=== PATIENT | male | born 1945 | race Caucasian/White ===

== ENCOUNTER 2018-12-01 05:55 | Day surgery (SDC) | payer MEDICARE ==
[~2018-12-01] VITALS: Ht 177.8 cm; Wt 75.7 kg
[2018-12-01] MEDS ORDERED: LIDOCAINE 1% PF 30 ML VIAL. ONE ×2 (05:57→06:09)
[2018-12-01] MEDS ORDERED: BUPIVACAINE MPF 0.5% 30 ML VIAL. ONE (05:57)
[2018-12-01] MEDS ORDERED: AMLO10TA8 PO (06:13)
[2018-12-01] MEDS ORDERED: ASPI81TA50 PO (06:14)
[2018-12-01] MEDS ORDERED: ATORVASTATIN CA80 MG PO (06:15)
[2018-12-01] MEDS ORDERED: CARV12.511 PO (06:15)
[2018-12-01] MEDS ORDERED: IRBE300T3 PO (06:16)
[2018-12-01] MEDS ORDERED: TERA10CA3 PO (06:17)
[2018-12-01] MEDS ORDERED: SPIR25TA5 PO (06:18)
[2018-12-01] MEDS ORDERED: PANT20TA2 PO (06:19)
[2018-12-01] MEDS ORDERED: CYAN10005 PO (06:26)
[2018-12-01] MEDS ORDERED: IV RINGERS,LACTATED 1000ML 1,000 ML IV SCH (07:00)
[2018-12-01] MEDS ORDERED: ONDANSETRON PF 4 MG/2 ML VIAL. IV PRN (07:00)
[2018-12-01] MEDS ORDERED: MORPHINE SULFATE 2 MG/ML VIAL. IV PRN (07:00)
[2018-12-01] MEDS ORDERED: HYDROmorphone 2 MG/ML VIAL IV PRN (07:00)
[2018-12-01] MEDS ORDERED: PROCHLORPERAZINE 10 MG/2 ML VIAL. IV PRN (07:00)
[2018-12-01] MEDS ORDERED: fentaNYL PF VIAL 100 MCG/2 ML VIAL IV PRN ×2 (07:00)
[2018-12-01] MEDS ORDERED: PROPOFOL 20 ML IV ONE (07:10)
--- NOTE | 2018-12-01 07:19 | DISCH ---
DISCHARGE INSTRUCTIONS Condition on Discharge Condition on Discharge: Stable Activity After Discharge Activity Instructions for Disc: Activity as tolerated Other activity instructions: wiggle fingers Bathing Instructions: Shower-keep dressing dry Lifting Instructions after Dis: No heavy lifting, No pulling or pushing Diet after Discharge Diet after Discharge: Regular Wound Incision Care Wound/Incision Care: Ice to area for comfort, Keep wound elevated, Change dressing Other wound/incision instructi: ok to change dressing in [address] after DC Call your doctor for: Concerns you may have Follow-Up Follow up with: Aria in 2 wks SUGEY SCHULTZ II, MD Dec 01, 2018 07:19
[2018-12-01] MEDS ORDERED: ONDA4TAB7 PO (08:33)
[2018-12-01] MEDS ORDERED: HYDR-3164 PO (08:34)
[2018-12-01] MEDS ORDERED: DOCU-109 PO (08:35)
[2018-12-01] MEDS ORDERED: HYDROcodone/APAP 5/325MG 1 TAB TABLET ONE (08:44)
[2018-12-01] MEDS ORDERED: HYDROcodone/APAP 5/325MG 1 TAB TABLET PO ONE (08:45)
--- NOTE | 2018-12-01 08:50 | PDOC4 ---
Operative Note Operative Note Date of procedure: 12/01/2018 Surgeon: Dariusz Schultz Preoperative diagnosis: Right carpal tunnel syndrome Postoperative diagnosis: Same Procedure performed: Open right carpal tunnel release Anesthesia: Ruchi block with sedation Findings: Normal-appearing median nerve Blood loss: 2 mL Tourniquet time: 25 minutes Complications: None Reason for procedure: Patient is very pleasant individual has had long-standing carpal tunnel symptoms that have failed conservative therapies. EMG demonstrated the same. Because conservative therapies had failed and the carpal tunnel syndrome was interfering with activities of daily living, we discussed the risks, benefits, alternatives to the above procedure and they wished to proceed. Description of procedure: Patient was greeted in the preoperative area where the patient underwent successful induction of a [place] block with sedation. The right upper extremity was then prepped and draped in her usual sterile fashion we conducted our standard preoperative timeout. After this, I made a skin incision from the distal wrist crease into the palm over the transverse carpal ligament and incised skin with a scalpel, dissected subcutaneous tissue until I encountered the palmar fascia with a mosquito clamp. Hemostasis was achieved with bipolar cautery. The palmar fascia was incised in line with the skin incision and myself retaining retractor was then positioned. I then identified the transverse carpal ligament and transected this with the scalpel. I then placed a Ragnell retractor at the distal portion of the incision, spread above and below small remaining portion of the transverse carpal ligament with a tenotomy and then released the remainder of the ligament distally with the tenotomy scissors. I then repeated this maneuver at the proximal portion of the incision and an ulnar directed fashion to release E distal and antebrachial fascia. I then palpated along the median nerve with the tip of the tenotomies to help ensure that accomplished a complete release. The wound was then thoroughly irrigated out with sterile fluid. Skin was then closed with simple interrupted 2-0 nylon. A soft bulky sterile dressing was applied. All counts correct 2 prior to wound closure. Surgery was well tolerated by the patient. The tourniquet was let down and the patient was transferred gently supine to the recovery room cart and taken to PACU in a stable and extubated condition. Postoperative plan is to encourage elevation of the hand and active range of motion at fingers and wrist. I will see the patient back in 2 weeks, sooner should a problem arise. DARIUSZ SCHULTZ II, MD Dec 01, 2018 08:50
[2018-12-01 09:26] VITALS: BP 143/82
== END 2018-12-01 09:26 | disposition home or self-care (01) ==
LOC: SURG 05:55
PROVIDERS: ATTEND Orthopaedic Surgery Sports Medicine
DX: G56.01 Carpal tunnel syndrome, right upper limb (principal); I10 Essential (primary) hypertension; I25.10 Atherosclerotic heart disease of native coronary artery without angina pectoris; E78.5 Hyperlipidemia, unspecified; K21.9 Gastro-esophageal reflux disease without esophagitis; Z85.828 Personal history of other malignant neoplasm of skin; Z90.49 Acquired absence of other specified parts of digestive tract; Z95.0 Presence of cardiac pacemaker; Z98.42 Cataract extraction status, left eye; Z98.41 Cataract extraction status, right eye; Z96.1 Presence of intraocular lens; Z98.890 Other specified postprocedural states; Z83.3 Family history of diabetes mellitus; Z82.49 Family history of ischemic heart disease and other diseases of the circulatory system; Z82.3 Family history of stroke; Z87.891 Personal history of nicotine dependence; Z95.1 Presence of aortocoronary bypass graft; Z79.899 Other long term (current) drug therapy; Z79.82 Long term (current) use of aspirin; Z88.8 Allergy status to other drugs, medicaments and biological substances
CPT/HCPCS: 64721; J0690; J2704; J3490

== ENCOUNTER 2019-09-14 12:08 | Inpatient (IN) | payer MEDICARE ==
[~2019-09-14] VITALS: Ht 180.3 cm; Wt 68.7 kg
[~2019-09-14 12:08] MED LIST: AMLO10TA8 PO; ASPI81TA50 PO; ATORVASTATIN CA80 MG PO; CARV12.511 PO; CYAN-25 PO; DOCU-109 PO; HYDR-3164 PO; IRBE300T3 PO; ONDA4TAB7 PO; PANT20TA2 PO; SPIR25TA5 PO; TERA10CA3 PO
[2019-09-14 12:26] LABS: BASO # 0.1 x10^3/uL (0.0-0.2); BASO % 2 % (0-3); EOS # 0.3 x10^3/uL (0.0-0.7); EOS % 4 % (0-3); HEMATOCRIT 47.3 % (39.0-53.0); HEMOGLOBIN 16.1 g/dL (13.0-17.5); LYMPH # 1.6 x10^3/uL (1.0-4.8); LYMPH % 25 % (24-48); MEAN CORPUSCULAR HEMOGLOBIN 32 pg (25-35); MEAN CORPUSCULAR HGB CONC 34 g/dL (31-37); MEAN CORPUSCULAR VOLUME 94 fL (79-100); MONO # 0.8 x10^3/uL (0.0-1.1); MONO % 12 % (0-9); NEUT # 3.8 x10^3/uL (1.8-7.7); NEUT % 58 % (31-73); PLATELET COUNT 161 x10^3/uL (140-400); RED BLOOD COUNT 5.01 x10^6/uL (4.30-5.70); RED CELL DISTRIBUTION WIDTH 14.1 % (11.5-14.5); WHITE BLOOD COUNT 6.5 x10^3/uL (4.0-11.0)
--- NOTE | 2019-09-14 12:28 | RAD ---
PORTABLE CHEST 1V History: Chest pain, hypertension Comparison: None. Findings: Single view of the chest is submitted. There has been median sternotomy. There is dual lead left electronic cardiac device. Pericardial cardiac silhouette is enlarged. There is medial right lung base airspace opacity, also possible mild atelectasis left lung base. No pneumothorax is identified. Central pulmonary vessels are somewhat prominent. Impression: 1. Pericardial cardiac silhouette is enlarged. There is medial right lung base opacity, possible infiltrate and also suspected mild left base atelectasis. Electronically signed by: Marquez Peters MD (09/14/2019 12:25 PM) [facility]
[2019-09-14] MEDS ORDERED: hydrALAZINE 20 MG/ML VIAL. IVP ONE (12:30)
[2019-09-14 12:37] LABS: CALCIUM 8.4 mg/dL (8.5-10.1); CREATININE 1.2 mg/dL (0.7-1.3); POTASSIUM 4.1 mmol/L (3.5-5.1)
[2019-09-14 12:41] LABS: ALBUMIN 3.4 g/dL (3.4-5.0); ALBUMIN/GLOBULIN RATIO 0.9 (1.0-1.7); MAGNESIUM 1.8 mg/dL (1.8-2.4); TOTAL BILIRUBIN 1.4 mg/dL (0.2-1.0); TOTAL PROTEIN 7.2 g/dL (6.4-8.2)
--- NOTE | 2019-09-14 12:56 | PHYS DOC ---
Past Medical History Past Medical History: CAD, High Cholesterol, Hypertension Past Surgical History: Coronary Bypass Surgery, Pacemaker, Other Additional Past Surgical Histo: right ankle; cardiac stents Alcohol Use: Occasionally Drug Use: None Adult General Chief Complaint Chief Complaint: CHEST PAIN HPI HPI Patient is a 74 year old with history of hypertension, dyslipidemia, coronary artery disease status post CABG and pacemaker placement who presents via EMS with complaint of shortness of breath and chest pain. Patient complaining of orthopnea and cough for one week. Patient complaining of bilateral lower extremity edema for the last few days. Patient states he went to see his primary care physician today regarding shortness of breath and had 1 episodes of substernal chest pain for a few minutes as a mild and aching pain that resolved spontaneously. Patient had EKG by primary care physician office was concern for possible STEMI and sent patient by EMS to ER. Patient however did not show STEMI. Review of Systems Review of Systems Constitutional: Denies fever or chills [] Eyes: Denies change in visual acuity, redness, or eye pain [] HENT: Denies nasal congestion or sore throat [] Respiratory: Reports cough and shortness of Cardiovascular: No additional information not addressed in HPI [] GI: Denies abdominal pain, nausea, vomiting, bloody stools or diarrhea [] : Denies dysuria or hematuria [] Musculoskeletal: Denies back pain or joint pain [] Integument: Denies rash or skin lesions [] Neurologic: Denies headache, focal weakness or sensory changes [] Endocrine: Denies polyuria or polydipsia [] All other systems were reviewed and found to be within normal limits, except as documented in this note. Current Medications Current Medications Current Medications Medications (Trade) Dose Ordered Sig/Betsy Start Time Stop Time Status Last Admin Dose Admin Hydralazine HCl (Apresoline Inj) 10 mg 1X ONCE 09/14/19 12:30 09/14/19 12:31 DC 09/14/19 12:30 10 MG Allergies Allergies Allergies Coded Allergies Type Severity Reaction Last Updated Verified No Known Drug Allergies 12/01/18 No Physical Exam Physical Exam Constitutional: Well developed, well nourished, no acute distress, non-toxic appearance. [] HENT: Normocephalic, atraumatic, bilateral external ears normal, oropharynx moist, no oral exudates, nose normal. [] Eyes: PERRLA, EOMI, conjunctiva normal, no discharge. [] Neck: Normal range of motion, no tenderness, supple, no stridor. [] Cardiovascular:Heart rate regular rhythm, no murmur [] Lungs & Thorax: Bilateral breath sounds clear to auscultation [] Abdomen: Bowel sounds normal, soft, no tenderness, no masses, no pulsatile masses. [] Skin: Warm, dry, no erythema, no rash. [] Back: No tenderness, no CVA tenderness. [] Extremities: No tenderness, no cyanosis, no clubbing, ROM intact, no edema. [] Neurologic: Alert and oriented X 3, normal motor function, normal sensory functi on, no focal deficits noted. [] Psychologic: Affect normal, judgement normal, mood normal. [] Current Patient Data Vital Signs Vital Signs Date Time Temp Pulse Resp B/P (MAP) Pulse Ox O2 Delivery O2 Flow Rate FiO2 09/14/19 12:41 72 20 196/86 (122) 96 09/14/19 12:27 Room Air 09/14/19 12:09 97.7 97.7 Lab Values Laboratory Tests Test 09/14/19 12:15 White Blood Count 6.5 x10^3/uL (4.0-11.0) Red Blood Count 5.01 x10^6/uL (4.30-5.70) Hemoglobin 16.1 g/dL (13.0-17.5) Hematocrit 47.3 % (39.0-53.0) Mean Corpuscular Volume 94 fL (79-100) Mean Corpuscular Hemoglobin 32 pg (25-35) Mean Corpuscular Hemoglobin Concent 34 g/dL (31-37) Red Cell Distribution Width 14.1 % (11.5-14.5) Platelet Count 161 x10^3/uL (140-400) Neutrophils (%) (Auto) 58 % (31-73) Lymphocytes (%) (Auto) 25 % (24-48) Monocytes (%) (Auto) 12 % (0-9) H Eosinophils (%) (Auto) 4 % (0-3) H Basophils (%) (Auto) 2 % (0-3) Neutrophils # (Auto) 3.8 x10^3/uL (1.8-7.7) Lymphocytes # (Auto) 1.6 x10^3/uL (1.0-4.8) Monocytes # (Auto) 0.8 x10^3/uL (0.0-1.1) Eosinophils # (Auto) 0.3 x10^3/uL (0.0-0.7) Basophils # (Auto) 0.1 x10^3/uL (0.0-0.2) Prothrombin Time 15.0 SEC (11.7-14.0) H Prothrombin Time INR 1.2 (0.8-1.1) H Sodium Level 139 mmol/L (136-145) Potassium Level 4.1 mmol/L (3.5-5.1) Chloride Level 106 mmol/L (98-107) Carbon Dioxide Level 25 mmol/L (21-32) Anion Gap 8 (6-14) Blood Urea Nitrogen 26 mg/dL (8-26) Creatinine 1.2 mg/dL (0.7-1.3) Estimated GFR (Cockcroft-Gault) 59.0 BUN/Creatinine Ratio 22 (6-20) H Glucose Level 104 mg/dL (70-99) H Calcium Level 8.4 mg/dL (8.5-10.1) L Magnesium Level 1.8 mg/dL (1.8-2.4) Total Bilirubin 1.4 mg/dL (0.2-1.0) H Aspartate Amino Transferase (AST) 37 U/L (15-37) Alanine Aminotransferase (ALT) 32 U/L (16-63) Alkaline Phosphatase 93 U/L (46-116) Creatine Kinase 126 U/L (39-308) Troponin I Quantitative 0.061 ng/mL (0.000-0.055) NS-Knt-S-Type Natriuretic Peptide 6452 pg/mL (0-449) H Total Protein 7.2 g/dL (6.4-8.2) Albumin 3.4 g/dL (3.4-5.0) Albumin/Globulin Ratio 0.9 (1.0-1.7) L Triglycerides Level 51 mg/dL (0-150) Cholesterol Level 162 mg/dL (0-200) LDL Cholesterol, Calculated 91 mg/dL (0-100) VLDL Cholesterol, Calculated 10 mg/dL (0-40) Non-HDL Cholesterol Calculated 101 mg/dL (0-129) HDL Cholesterol 61 mg/dL (40-60) H Cholesterol/HDL Ratio 2.7 Lipase 156 U/L (73-393) Laboratory Tests 09/14/19 12:15 Laboratory Tests 09/14/19 12:15 EKG EKG Interpreted by me. EKG at 1212 showed sinus rhythm at rate of 85, PVCs, poor R- wave progress in anteroseptal leads, no acute ST and T-wave elevation Radiology/Procedures Radiology/Procedures [][facility] [address] [place] [address] IMAGING REPORT Signed PATIENT: MOLLY MALIK ACCOUNT: [id number] : 1945 LOCATION: ER AGE: 74 SEX: M EXAM STATUS: PRE ER ORD. PHYSICIAN: SUSIE BOSWELL MD REASON: chest pain, HYPERTENTION PROCEDURE: PORTABLE CHEST 1V PORTABLE CHEST 1V History: Chest pain, hypertension Comparison: None. Findings: Single view of the chest is submitted. There has been median sternotomy. There is dual lead left electronic cardiac device. Pericardial cardiac silhouette is enlarged. There is medial right lung base airspace opacity, also possible mild atelectasis left lung base. No pneumothorax is identified. Central pulmonary vessels are somewhat prominent. Impression: 1. Pericardial cardiac silhouette is enlarged. There is medial right lung base opacity, possible infiltrate and also suspected mild left base atelectasis. Electronically signed by: Eliseo Peters MD (09/14/2019 12:25 PM) [facility] DICTATED and SIGNED BY: ELISEO PETERS MD DATE: 09/14/19 1225 Course & Med Decision Making Course & Med Decision Making Pertinent Labs and Imaging studies reviewed. (See chart for details) Patient in ER showed 74-year-old male patient brought in by EMS with concern for STD. Patient did not have hysterectomy at arrival to ER and was chest pain- free. Patient had sign of CHF without history of CHF. BNP was elevated. Troponin was very mildly elevated because of elevation of BNP. Patient had blood pressure of 102 100 at arrival to ER and treated with hydralazine and Lasix with improvement of blood pressure and shortness of breath.Patient requiring admission for further evaluation and treatment. Discussed with Dr. Grace who is in agreement with admission. Discussed findings and plan with patient and family, who acknowledge understanding and agreement. Dragon Disclaimer Dragon Disclaimer This electronic medical record was generated, in whole or in part, using a voice recognition dictation system. Departure Departure Impression: Primary Impression: Acute CHF Additional Impressions: Hypertensive urgency Elevated troponin I level Chest pain Abnormal chest x-ray Disposition: ADMITTED INPATIENT (at 1306) Admitting Physician: JEN (Dr. Grace accepted admission at 1306) Condition: IMPROVED Referrals: SUGEY JOSE MD (PCP) Problem Qualifiers Primary Impression: Acute CHF Heart failure type: unspecified Qualified Codes: I50.9 - Heart failure, unspecified Additional Impressions: Chest pain Chest pain type: unspecified Qualified Codes: R07.9 - Chest pain, unspecified SUSIE BOSWELL MD Sep 14, 2019 12:56
[2019-09-14] MEDS ORDERED: cefTRIAXone IV Push 1 GM VIAL. IVP ONE (13:00)
[2019-09-14] MEDS ORDERED: FUROSEMIDE 40 MG/4 ML VIAL. ONE (13:24)
--- NOTE | 2019-09-14 13:25 | PDOC1 ---
History and Physical Date of Admission: Date of Admission DATE: 09/14/19 TIME: 13:21 Chief Complaint: Problems: (1) Right carpal tunnel syndrome Chief Complain: Shortness of breath History of Present Illness: HPI: This is an elderly male who has a long cardiac history He's had bypass surgery heart failure CAD and a pacemaker Basically he presents with acute on chronic systolic and diastolic heart failure He has associated edema Increase his home Lasix but that didn't help Describes as irritating Rated at 7 out of 10 Moving makes it worse sitting still makes it better Spell occurring for several days I discussed the case with the ER physician we are going to admit the patient for IV diuretics and consultation with cardiology Past Medical/Surgical History: PMH/PSH: Past Medical History: CAD, High Cholesterol, Hypertension Past Surgical History: Coronary Bypass Surgery, Pacemaker, Other Additional Past Surgical Histo: right ankle; cardiac stents Alcohol Use: Occasionally Drug Use: None Allergies: Allergies: Coded Allergies: No Known Drug Allergies (Unverified , 12/01/18) Family History: Family History: Coronary artery disease and hypertension Social History: Social Hisoty: He is retired he doesn't drink smoke or take drugs Current Medications: Current Medications Current Medications Hydralazine HCl (Apresoline Inj) 10 mg 1X ONCE IVP Last administered on 09/14/19at 12:30; Start 09/14/19 at 12:30; Stop 09/14/19 at 12:31; Status DC Ceftriaxone Sodium (Rocephin) 1 gm 1X ONCE IVP Last administered on 09/14/19at 13:09; Start 09/14/19 at 13:00; Stop 09/14/19 at 13:01; Status DC Active Scripts Active Reported Colace (Docusate Sodium) 100 Mg Capsule 100 Mg PO BID Rowe 5-325 Tablet (Acetaminophen/Hydrocodone Bitart) 1 Each Tablet 1-2 Tab PO Q6HRS Zofran (Ondansetron Hcl) 4 Mg Tablet 1 Tab PO TID 14 Days Vitamin B-12 (Cyanocobalamin (Vitamin B-12)) 1,000 Mcg Tablet 1 Tab PO DAILY Protonix (Pantoprazole Sodium) 20 Mg Tablet.dr 40 Mg PO DAILY Spironolactone 25 Mg Tablet 1 Tab PO DAILY Terazosin Hcl 10 Mg Capsule 1 Cap PO DAILY Irbesartan 300 Mg Tablet 150 Mg PO DAILY Carvedilol (Carvedilol) 12.5 Mg Tablet 25 Mg PO DAILY Atorvastatin Calcium 80 Mg Tablet 1 Tab PO DAILY Aspir-Low (Aspirin) 81 Mg Tablet. 1 Tab PO DAILY Amlodipine Besylate 10 Mg Tablet 10 Mg PO DAILY ROS: Review of Systems Review of System REVIEW OF SYSTEMS: GENERAL: Denies weakness SKIN: No bruising, hair changes or rashes. EYES: No blurred, double or loss of vision. NOSE AND THROAT: No history of nosebleeds, hoarseness or sore throat. HEART: No history of palpitations, chest pain or shortness of breath on exertion. LUNGS: Complains of shortness of breath GASTROINTESTINAL: Denies changes in appetite, nausea, vomiting, diarrhea or constipation. GENITOURINARY: No history of frequency, urgency, hesitancy or nocturia. NEUROLOGIC: Denies history of numbness, tingling, tremor or weakness. PSYCHIATRIC: No history of panic, anxiety or depression. ENDOCRINE: No history of heat or cold intolerance, polyuria or polydipsia. EXTREMITIES: Denies muscle weakness, joint pain, pain on walking or stiffness. Physical Exam: Vital Signs: Vital Signs Date Time Temp Pulse Resp B/P (MAP) Pulse Ox O2 Delivery O2 Flow Rate FiO2 09/14/19 12:30 77 201/113 09/14/19 12:09 97.7 16 94 Room Air 97.7 Physcial Exam: GEN: No apparent distress. Alert and oriented HEENT: Normal cephalic, atraumatic, external auditory canals are patent EYES: Extraocular muscles are intact, pupil are equally round and reactive to light and accommodation MUSCULOSKELETAL: Well developed , well nourished, good range of motion ENDOCRINE: No thyromegaly was palpated LYMPHATICS: No cervical chain or axillary nodes were noted HEMATOPOIETIC: No bruising NECK: Supple, no JVD, no thyromegaly was noted LUNGS: Bibasilar crackles HEART: RRR, S!, S2 present. Peripheral pulses intact, no obvious murmurs noted ABDOMEN: Soft, nontender. Positive bowel sounds, no organomegaly, normal bowel sounds EXTREMITIES: 1+ edema NEUROLOGIC: Normal speech and tone. A&O x 3, moves all extremities, no obvious focal deficits PSYCHIATRIC: Normal affect, normal mood. Stable SKIN: No ulcerations or rashes, good skin turgor, no jaundice VASCULAR: Good capillary refill, neurovascular bundle appears to be intact Labs: Labs: Laboratory Tests Test 09/14/19 12:15 White Blood Count 6.5 x10^3/uL (4.0-11.0) Red Blood Count 5.01 x10^6/uL (4.30-5.70) Hemoglobin 16.1 g/dL (13.0-17.5) Hematocrit 47.3 % (39.0-53.0) Mean Corpuscular Volume 94 fL (79-100) Mean Corpuscular Hemoglobin 32 pg (25-35) Mean Corpuscular Hemoglobin Concent 34 g/dL (31-37) Red Cell Distribution Width 14.1 % (11.5-14.5) Platelet Count 161 x10^3/uL (140-400) Neutrophils (%) (Auto) 58 % (31-73) Lymphocytes (%) (Auto) 25 % (24-48) Monocytes (%) (Auto) 12 % (0-9) Eosinophils (%) (Auto) 4 % (0-3) Basophils (%) (Auto) 2 % (0-3) Neutrophils # (Auto) 3.8 x10^3/uL (1.8-7.7) Lymphocytes # (Auto) 1.6 x10^3/uL (1.0-4.8) Monocytes # (Auto) 0.8 x10^3/uL (0.0-1.1) Eosinophils # (Auto) 0.3 x10^3/uL (0.0-0.7) Basophils # (Auto) 0.1 x10^3/uL (0.0-0.2) Prothrombin Time 15.0 SEC (11.7-14.0) Prothromb Time International Ratio 1.2 (0.8-1.1) Sodium Level 139 mmol/L (136-145) Potassium Level 4.1 mmol/L (3.5-5.1) Chloride Level 106 mmol/L (98-107) Carbon Dioxide Level 25 mmol/L (21-32) Anion Gap 8 (6-14) Blood Urea Nitrogen 26 mg/dL (8-26) Creatinine 1.2 mg/dL (0.7-1.3) Estimated GFR (Cockcroft-Gault) 59.0 BUN/Creatinine Ratio 22 (6-20) Glucose Level 104 mg/dL (70-99) Calcium Level 8.4 mg/dL (8.5-10.1) Magnesium Level 1.8 mg/dL (1.8-2.4) Total Bilirubin 1.4 mg/dL (0.2-1.0) Aspartate Amino Transf (AST/SGOT) 37 U/L (15-37) Alanine Aminotransferase (ALT/SGPT) 32 U/L (16-63) Alkaline Phosphatase 93 U/L (46-116) Creatine Kinase 126 U/L (39-308) Troponin I Quantitative 0.061 ng/mL (0.000-0.055) VP-Ikj-L-Type Natriuretic Peptide 6452 pg/mL (0-449) Total Protein 7.2 g/dL (6.4-8.2) Albumin 3.4 g/dL (3.4-5.0) Albumin/Globulin Ratio 0.9 (1.0-1.7) Lipase 156 U/L (73-393) Laboratory Tests Test 09/14/19 12:15 White Blood Count 6.5 x10^3/uL (4.0-11.0) Red Blood Count 5.01 x10^6/uL (4.30-5.70) Hemoglobin 16.1 g/dL (13.0-17.5) Hematocrit 47.3 % (39.0-53.0) Mean Corpuscular Volume 94 fL (79-100) Mean Corpuscular Hemoglobin 32 pg (25-35) Mean Corpuscular Hemoglobin Concent 34 g/dL (31-37) Red Cell Distribution Width 14.1 % (11.5-14.5) Platelet Count 161 x10^3/uL (140-400) Neutrophils (%) (Auto) 58 % (31-73) Lymphocytes (%) (Auto) 25 % (24-48) Monocytes (%) (Auto) 12 % (0-9) Eosinophils (%) (Auto) 4 % (0-3) Basophils (%) (Auto) 2 % (0-3) Neutrophils # (Auto) 3.8 x10^3/uL (1.8-7.7) Lymphocytes # (Auto) 1.6 x10^3/uL (1.0-4.8) Monocytes # (Auto) 0.8 x10^3/uL (0.0-1.1) Eosinophils # (Auto) 0.3 x10^3/uL (0.0-0.7) Basophils # (Auto) 0.1 x10^3/uL (0.0-0.2) Prothrombin Time 15.0 SEC (11.7-14.0) Prothromb Time International Ratio 1.2 (0.8-1.1) Sodium Level 139 mmol/L (136-145) Potassium Level 4.1 mmol/L (3.5-5.1) Chloride Level 106 mmol/L (98-107) Carbon Dioxide Level 25 mmol/L (21-32) Anion Gap 8 (6-14) Blood Urea Nitrogen 26 mg/dL (8-26) Creatinine 1.2 mg/dL (0.7-1.3) Estimated GFR (Cockcroft-Gault) 59.0 BUN/Creatinine Ratio 22 (6-20) Glucose Level 104 mg/dL (70-99) Calcium Level 8.4 mg/dL (8.5-10.1) Magnesium Level 1.8 mg/dL (1.8-2.4) Total Bilirubin 1.4 mg/dL (0.2-1.0) Aspartate Amino Transf (AST/SGOT) 37 U/L (15-37) Alanine Aminotransferase (ALT/SGPT) 32 U/L (16-63) Alkaline Phosphatase 93 U/L (46-116) Creatine Kinase 126 U/L (39-308) Troponin I Quantitative 0.061 ng/mL (0.000-0.055) VI-Zch-G-Type Natriuretic Peptide 6452 pg/mL (0-449) Total Protein 7.2 g/dL (6.4-8.2) Albumin 3.4 g/dL (3.4-5.0) Albumin/Globulin Ratio 0.9 (1.0-1.7) Lipase 156 U/L (73-393) Images: Images Chest x-ray shows vascular congestion Assessment/Plan Assessment/Plan Acute on chronic systolic and diastolic heart failure will and a elderly male who has a complex cardiac history Plan IV Lasix Cardiac monitoring Home meds Serial enzymes serially EKGs Echocardiogram DVT prophylaxis Full code Consul cardiology PT OT if possible He might need shelter after this discharge Long-term prognosis guarded VIRGIL ELY III DO Sep 14, 2019 13:25
[2019-09-14 13:30] VITALS: BP 187/92
[2019-09-14] MEDS ORDERED: FUROSEMIDE 40 MG/4 ML VIAL. IVP ONE (13:30)
--- NOTE | 2019-09-14 13:44 | EKG ---
[facility] [address] [place] [address] Test Date: 2019-09-14 Test Time: 12:12:23 Pat Name: MOLLY MALIK Department: Room: Gender: M Nurse Specialist: : 1945 Requested By: SUSIE BOSWELL Order Number: [id number] Reading MD: Measurements Intervals [place] Rate: 85 P: 0 [place]: 194 QRS: 48 QRSD: 112 T: 122 QT: 382 QTc: 455 Interpretive Statements SINUS RHYTHM VENTRICULAR PREMATURE COMPLEX(ES) ST & T ABNORMALITY, CONSIDER HIGH LATERAL ISCHEMIA OR LEFT VENTRICULAR STRAIN ABNORMAL ECG RI6.01 No previous ECG available for comparison
--- NOTE | 2019-09-14 14:30 | PDOC2 ---
LITO ROE FUR LINER 09/14/19 1430: CARDIAC CONSULT DATE OF CONSULT Date of Consult DATE: 09/14/19 TIME: 14:26 REASON FOR CONSULT Reason for Consult: CHF REFERRING PHYSICIAN Referring Physician: Dr. Sesay SOURCE Source: Chart review, Patient HISTORY OF PRESENT ILLNESS HISTORY OF PRESENT ILLNESS This is a 74 yo male who presented secondary to shortness of breath and episodic chest pain. Patient has been more short of breath for the last 2 weeks, especially at night when he lays down. Associated in bilateral LE edema. Made an appointment with PCP, Dr. Pichardo today due to symptoms. Has brief episode of stabbing pain in his central chest while in the office. Pain lasted about 2 seconds and resolved without intervention. No associated dizziness, diaphoresis, palpitation, or nausea/vomiting. Has in office EKG that was reportedly concerning for ST/T was changes and patient was referred to the ED for further evaluation and treatment. No further pain. Is feeling much better following diuresis. Has a history of CAD s/p CABG and SSS s/p PPM. Follows with [facility] cardiology. Reports most recent cath was about 2 years ago. Echocardiogram about a year ago. 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 Has experienced no chest pain with exertional activities. PAST MEDICAL HISTORY Cardiovascular: CAD, CHF, HTN, Hyperlipidemia Musculoskeletal: Osteoarthritis PAST SURGICAL HISTORY Past Surgical History: Pacemaker, Cholecystectomy, CABG FAMILY HISTORY Family History: Heart Disease SOCIAL HISTORY Smoke: No ALCOHOL: none Drugs: None Lives: Friends CURRENT MEDICATIONS CURRENT MEDICATIONS Current Medications Medications (Trade) Dose Ordered Sig/Betsy Route PRN Reason Start Time Stop Time Status Last Admin Dose Admin Hydralazine HCl (Apresoline Inj) 10 mg 1X ONCE IVP 09/14/19 12:30 09/14/19 12:31 DC 09/14/19 12:30 Ceftriaxone Sodium (Rocephin) 1 gm 1X ONCE IVP 09/14/19 13:00 09/14/19 13:01 DC 09/14/19 13:09 Furosemide (Lasix) 40 mg 1X ONCE IVP 09/14/19 13:30 09/14/19 13:31 DC 09/14/19 13:26 ALLERGIES ALLERGIES: Coded Allergies: No Known Drug Allergies (Unverified , 12/01/18) ROS Review of System 14 point ROS conducted with pertinent positives noted above in HPI PHYSICAL EXAM General: Alert, Oriented X3, Cooperative, No acute distress HEENT: Atraumatic, Mucous membr. moist/pink Lungs: Other (diminished bases ) Heart: Regular rate, Other (2/6 systolic murmur. ) Abdomen: Soft, No tenderness Extremities: No edema, Normal pulses Skin: No breakdown, No significant lesion Neuro: Normal speech, Sensation intact Psych/Mental Status: Mental status NL, Mood NL MUSCULOSKELETAL: Osteoarthritic changes both hands VITALS/I&O VITALS/I&O: Vital Signs Date Time Temp Pulse Resp B/P (MAP) Pulse Ox O2 Delivery O2 Flow Rate FiO2 09/14/19 12:30 77 201/113 09/14/19 12:09 97.7 16 94 Room Air 97.7 LABS Lab: Laboratory Tests Test 09/14/19 12:15 09/14/19 13:05 White Blood Count 6.5 x10^3/uL (4.0-11.0) Red Blood Count 5.01 x10^6/uL (4.30-5.70) Hemoglobin 16.1 g/dL (13.0-17.5) Hematocrit 47.3 % (39.0-53.0) Mean Corpuscular Volume 94 fL (79-100) Mean Corpuscular Hemoglobin 32 pg (25-35) Mean Corpuscular Hemoglobin Concent 34 g/dL (31-37) Red Cell Distribution Width 14.1 % (11.5-14.5) Platelet Count 161 x10^3/uL (140-400) Neutrophils (%) (Auto) 58 % (31-73) Lymphocytes (%) (Auto) 25 % (24-48) Monocytes (%) (Auto) 12 % (0-9) H Eosinophils (%) (Auto) 4 % (0-3) H Basophils (%) (Auto) 2 % (0-3) Neutrophils # (Auto) 3.8 x10^3/uL (1.8-7.7) Lymphocytes # (Auto) 1.6 x10^3/uL (1.0-4.8) Monocytes # (Auto) 0.8 x10^3/uL (0.0-1.1) Eosinophils # (Auto) 0.3 x10^3/uL (0.0-0.7) Basophils # (Auto) 0.1 x10^3/uL (0.0-0.2) Prothrombin Time 15.0 SEC (11.7-14.0) H Prothrombin Time INR 1.2 (0.8-1.1) H Sodium Level 139 mmol/L (136-145) Potassium Level 4.1 mmol/L (3.5-5.1) Chloride Level 106 mmol/L (98-107) Carbon Dioxide Level 25 mmol/L (21-32) Anion Gap 8 (6-14) Blood Urea Nitrogen 26 mg/dL (8-26) Creatinine 1.2 mg/dL (0.7-1.3) Estimated GFR (Cockcroft-Gault) 59.0 BUN/Creatinine Ratio 22 (6-20) H Glucose Level 104 mg/dL (70-99) H Calcium Level 8.4 mg/dL (8.5-10.1) L Magnesium Level 1.8 mg/dL (1.8-2.4) Total Bilirubin 1.4 mg/dL (0.2-1.0) H Aspartate Amino Transferase (AST) 37 U/L (15-37) Alanine Aminotransferase (ALT) 32 U/L (16-63) Alkaline Phosphatase 93 U/L (46-116) Creatine Kinase 126 U/L (39-308) Troponin I Quantitative 0.061 ng/mL (0.000-0.055) SP-Vuc-M-Type Natriuretic Peptide 6452 pg/mL (0-449) H Total Protein 7.2 g/dL (6.4-8.2) Albumin 3.4 g/dL (3.4-5.0) Albumin/Globulin Ratio 0.9 (1.0-1.7) L Lipase 156 U/L (73-393) Lactic Acid Level 0.8 mmol/L (0.4-2.0) Laboratory Tests 09/14/19 12:15 Laboratory Tests 09/14/19 12:15 ECHOCARDIOGRAM ECHOCARDIOGRAM <Conclusion> There is mild concentric LVH with slight asymmetric thickening of the septum Left ventricle systolic function is mildly impaired. The Ejection Fraction is 45 to 50%. There is hypokinesis in the inferior and inferoseptal wright. Tissue Doppler imaging reveals mild left ventricular diastolic dysfunction. The left atrium is mildly dilated. The aortic valve is trileaflet, thickened, calcified but opens well. Doppler and Color Flow revealed mild aortic regurgitation. The PA pressure was normal at 18 mmHg. The ascending aorta is mildly ectatic at 3.5 cm DATE: 08/22/16 1440 ASSESSMENT/PLAN ASSESSMENT/PLAN 1. Acute on chronic probable mixed diastolic/systolic CHF in the setting of uncontrolled blood pressure; improved following diuresis 2. Mild troponin elevation; initial 0.06. Most probably type II, demand ischemia 3. Hypertensive urgency; like secondary to above. 4. Chest pain, atypical; most probably secondary to #3. 5. ICM; LVEF 2015 45-50% 6. CAD s/p CABG 2004 and subsequent stents. Follows with [facility] cardiology 7. SSS s/p PPM 8. Hyperlipidemia; statin Recommendations Diuresis Echo to assess LV systolic function Trend troponin BP control; resume home therapy and titrate as warranted Hydralazine IV PRN Resume secondary prevention Obtain cardiac records from [facility] Further pending above. CECILY KNUTSON MD 09/15/19 1106: CARDIAC CONSULT ASSESSMENT/PLAN ASSESSMENT/PLAN late entry for 09/14/2019 Pt. seen and examined. Agree with above LETTER CARRIER note. I had a long discussion with the patient regarding the risks/benefits of further evaluation versus medical therapy. He wishes to undergo cardiac cath given his new onset LV dysfunction. OSH records reviewed. LITO ROE APRN Sep 14, 2019 14:30 CECILY KNUTSON MD Sep 15, 2019 11:06
[2019-09-14 14:31] LABS: BILIRUBIN,URINE NEGATIVE (NEG); CLARITY,URINE CLEAR; COLOR,URINE YELLOW; NITRITE,URINE NEGATIVE (NEG); PH,URINE 6.5; PROTEIN,URINE 30 mg/dL (NEG-TRACE); UROBILINOGEN,URINE 0.2 mg/dL (0.2 mg/dL)
[2019-09-14 14:45] LABS: BACTERIA,URINE 0 /HPF (0-FEW); RBC,URINE 0 /HPF (0-2); SQUAMOUS EPITHELIAL CELL,UR OCC /LPF; WBC,URINE OCC /HPF (0-4)
[2019-09-14 15:10] LABS: CHOLESTEROL/HDL RATIO 2.7
--- NOTE | 2019-09-14 15:57 | CARD ---
MR#: [id number] Date of Study: 09/14/2019 Ordering Physician: LITO ROE, Referring Physician: LITO ROE, Tech: Alise Meeks [place] APPROVED REPORT EXAM: Two-dimensional and M-mode echocardiogram with Doppler and color Doppler. Other Information Quality : Good INDICATION Chest Pain Congestive Heart Failure Surgery/Intervention ICD/Pacemaker: Date: 2018 CABG: Date: 2004 2D DIMENSIONS RVDd2.3 (2.9-3.5cm)Left Atrium(2D)4.5 (1.6-4.0cm) IVSd1.6 (0.7-1.1cm)Aortic Root(2D)2.8 (2.0-3.7cm) LVDd5.8 (3.9-5.9cm)LVOT Diameter2.2 (1.8-2.4cm) PWd0.9 (0.7-1.1cm)LVDs5.1 (2.5-4.0cm) FS (%) 10.0 %SV92.5 ml LVEF(%)20.0 (>50%) Aortic Valve AoV Peak Terrance.146.5cm/sAoV VTI27.7cm AO Peak GR.8.6mmHgLVOT Peak Terrance.95.7cm/s AO Mean GR.5mmHgAVA (VTI)2.30cm2 AI P 1/2 [id number] Mitral Valve MV E Vsqohfmh92.9cm/sMV DECEL [id number] MV A Vdxnhaiu47.5cm/sE/A Ratio1.2 Tricuspid Valve TR P. Jursmbsw285wv/sRAP RHEVFSDC6ssRk TR Peak Gr.31cgBuWNBA80elTh Pulmonary Vein S1 Ugqwauwu06.0cm/sD2 Ebiajndi72.4cm/s LEFT VENTRICLE The left ventricle is normal size. There is moderate asymmetric septal hypertrophy. Left ventricle sy stolic function is severely impaired. The Ejection Fraction is 20-25%. There is severe global hypokin esis of the left ventricle. Basal inferior wall akinetic. Transmitral Doppler flow pattern is Grade I I-pseudonormal filling dynamics. RIGHT VENTRICLE The right ventricle is normal size. The right ventricular systolic function is normal. There is a pac emaker lead in the right ventricle. ATRIA The left atrium is mildly dilated. The right atrium size is normal. A pacemaker is seen in the right atrium consistent with history. The interatrial septum is intact with no evidence for an atrial septa l defect or patent foramen ovale as noted on 2-D or Doppler imaging. AORTIC VALVE The aortic valve is calcified but opens well. Doppler and Color Flow revealed mild to moderate aortic regurgitation. There is no significant aortic valvular stenosis. MITRAL VALVE The mitral valve is calcified but opens well. Mitral annular calcification is mild. There is no evide nce of mitral valve prolapse. There is no mitral valve stenosis. Doppler and Color-flow revealed mild mitral regurgitation. TRICUSPID VALVE The tricuspid valve is normal in structure and function. Doppler and Color Flow revealed mild tricusp id regurgitation. There is moderate pulmonary hypertension. The PA pressure was estimated at 48 mmHg. There is no tricuspid valve stenosis. PULMONIC VALVE The pulmonic valve is not well visualized. Doppler and Color Flow revealed mild pulmonic valvular reg urgitation. There is no pulmonic valvular stenosis. GREAT VESSELS The aortic root is normal in size. The ascending aorta is normal in size. The IVC is normal in size a nd collapses >50% with inspiration. PERICARDIAL EFFUSION There is no evidence of significant pericardial effusion. Critical Notification Critical Value: No <Conclusion> Left ventricle systolic function is severely impaired. Basal inferior wall akinetic. The Ejection Fraction is 20-25%. Pacemaker lead noted in the right atrium and ventricle. Mild to moderate aortic regurgitation. Mild mitral regurgitation. Mild tricuspid regurgitation. There is moderate pulmonary hypertension. The PA pressure was estimated at 48 mmHg. There is no evidence of significant pericardial effusion. Signed by : Shaquille Pacheco, Electronically Approved : 09/14/2019 15:56:59
[2019-09-14] MEDS ORDERED: ASPI-612 PO (16:22)
[2019-09-14] MEDS ORDERED: CARV3.123 PO (16:34)
[2019-09-14] MEDS: CARVEDILOL 3.125 MG TABLET. PO SCH (18:13)
[2019-09-14] MEDS: hydrALAZINE 20 MG/ML VIAL. IVP PRN (18:14)
[2019-09-14 19:00] VITALS: BP 144/65
[2019-09-14] MEDS ORDERED: ATORVASTATIN CALCIUM 40 MG TABLET. PO SCH (21:00)
[2019-09-14 23:00] VITALS: BP 161/82
[2019-09-15] VITALS (14 sets, daily range): BP systolic 109–197; BP diastolic 56–98
[2019-09-15] MEDS: hydrALAZINE 20 MG/ML VIAL. IVP PRN ×2 (03:07→13:06)
[2019-09-15] MEDS: CARVEDILOL 3.125 MG TABLET. PO SCH ×2 (08:14→18:13)
[2019-09-15] MEDS ORDERED: ASPIRIN ENTERIC COATED 81 MG TABLET.DR. PO SCH (09:00)
[2019-09-15] MEDS ORDERED: CYANOCOBALAMIN (VITAMIN B-12) 1,000 MCG TABLET. PO SCH (09:00)
[2019-09-15] MEDS ORDERED: ENOXAPARIN 40 MG/0.4 ML SYRINGE. SQ SCH (10:00)
--- NOTE | 2019-09-15 10:15 | PDOC ---
PROGRESS NOTES Chief Complaint Chief Complaint Acute on chronic mixed diastolic/systolic CHF in the setting of uncontrolled blood pressure; improved following diuresis Mild troponin elevation; initial 0.06. Most probably type II, demand ischemia Hypertensive urgency; like secondary to above. Chest pain, atypical; most probably secondary to demand ischemia from acute CHF ICM; LVEF 2015 45-50%, now 20-25% 09/14/2019 CAD s/p CABG 2004 and subsequent stents. Follows with [facility] cardiology SSS s/p PPM Hyperlipidemia; statin History of Present Illness History of Present Illness Mr Darby is a 74 yo male who presented secondary to shortness of breath and episodic chest pain. Patient has been more short of breath for the last 2 weeks, especially at night when he lays down. Associated in bilateral LE edema. Made an appointment with PCP, Dr. Pichardo today due to symptoms. Has brief episode of stabbing pain in his central chest while in the office. Pain lasted about 2 seconds and resolved without intervention. No associated dizziness, diaphoresis, palpitation, or nausea/vomiting. Has in office EKG that was reportedly concerning for ST/T was changes and patient was referred to the ED for further evaluation and treatment. No further pain. Is feeling much better following diuresis. Has a history of CAD s/p CABG and SSS s/p PPM. Follows with [facility] cardiology. Reports most recent cath was about 2 years ago. Echocardiogram about a year ago. 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 Has experienced no chest pain with exertional activities and therefore underwent cardiac catheterization for further classification of his worsening of his EF. He had Normal left sided filling pressures, Severe [place] three vessel coronary disease, 3/3 grafts patent and was feeling improved post-cath. Vitals Vitals Vital Signs Date Time Temp Pulse Resp B/P (MAP) Pulse Ox O2 Delivery O2 Flow Rate FiO2 09/15/19 08:14 70 154/76 09/15/19 07:00 97.4 18 95 Room Air 97.4 Physical Exam General: Alert, Oriented X3, Cooperative, No acute distress Heart: Regular rate, Other (2/6 systolic murmur. ) Abdomen: Soft, No tenderness Extremities: No edema, Normal pulses Skin: No breakdown, No significant lesion Labs LABS Laboratory Tests Test 09/14/19 12:15 09/14/19 13:05 09/14/19 13:35 09/14/19 16:15 White Blood Count 6.5 x10^3/uL (4.0-11.0) Red Blood Count 5.01 x10^6/uL (4.30-5.70) Hemoglobin 16.1 g/dL (13.0-17.5) Hematocrit 47.3 % (39.0-53.0) Mean Corpuscular Volume 94 fL (79-100) Mean Corpuscular Hemoglobin 32 pg (25-35) Mean Corpuscular Hemoglobin Concent 34 g/dL (31-37) Red Cell Distribution Width 14.1 % (11.5-14.5) Platelet Count 161 x10^3/uL (140-400) Neutrophils (%) (Auto) 58 % (31-73) Lymphocytes (%) (Auto) 25 % (24-48) Monocytes (%) (Auto) 12 % (0-9) Eosinophils (%) (Auto) 4 % (0-3) Basophils (%) (Auto) 2 % (0-3) Neutrophils # (Auto) 3.8 x10^3/uL (1.8-7.7) Lymphocytes # (Auto) 1.6 x10^3/uL (1.0-4.8) Monocytes # (Auto) 0.8 x10^3/uL (0.0-1.1) Eosinophils # (Auto) 0.3 x10^3/uL (0.0-0.7) Basophils # (Auto) 0.1 x10^3/uL (0.0-0.2) Prothrombin Time 15.0 SEC (11.7-14.0) Prothromb Time International Ratio 1.2 (0.8-1.1) Sodium Level 139 mmol/L (136-145) Potassium Level 4.1 mmol/L (3.5-5.1) Chloride Level 106 mmol/L (98-107) Carbon Dioxide Level 25 mmol/L (21-32) Anion Gap 8 (6-14) Blood Urea Nitrogen 26 mg/dL (8-26) Creatinine 1.2 mg/dL (0.7-1.3) Estimated GFR (Cockcroft-Gault) 59.0 BUN/Creatinine Ratio 22 (6-20) Glucose Level 104 mg/dL (70-99) Calcium Level 8.4 mg/dL (8.5-10.1) Magnesium Level 1.8 mg/dL (1.8-2.4) Total Bilirubin 1.4 mg/dL (0.2-1.0) Aspartate Amino Transf (AST/SGOT) 37 U/L (15-37) Alanine Aminotransferase (ALT/SGPT) 32 U/L (16-63) Alkaline Phosphatase 93 U/L (46-116) Creatine Kinase 126 U/L (39-308) Troponin I Quantitative 0.061 ng/mL (0.000-0.055) 0.057 ng/mL (0.000-0.055) OY-Zab-D-Type Natriuretic Peptide 6452 pg/mL (0-449) Total Protein 7.2 g/dL (6.4-8.2) Albumin 3.4 g/dL (3.4-5.0) Albumin/Globulin Ratio 0.9 (1.0-1.7) Triglycerides Level 51 mg/dL (0-150) Cholesterol Level 162 mg/dL (0-200) LDL Cholesterol, Calculated 91 mg/dL (0-100) VLDL Cholesterol, Calculated 10 mg/dL (0-40) Non-HDL Cholesterol Calculated 101 mg/dL (0-129) HDL Cholesterol 61 mg/dL (40-60) Cholesterol/HDL Ratio 2.7 Lipase 156 U/L (73-393) Lactic Acid Level 0.8 mmol/L (0.4-2.0) Urine Color Yellow Urine Clarity Clear Urine pH 6.5 Urine Specific [place] 1.015 Urine Protein 30 mg/dL (NEG-TRACE) Urine Glucose (UA) Negative mg/dL (NEG) Urine Ketones (Stick) Negative mg/dL (NEG) Urine Blood Negative (NEG) Urine Nitrite Negative (NEG) Urine Bilirubin Negative (NEG) Urine Urobilinogen Dipstick 0.2 mg/dL (0.2 mg/dL) Urine Leukocyte Esterase Negative (NEG) Urine RBC 0 /HPF (0-2) Urine WBC Occ /HPF (0-4) Urine Squamous Epithelial Cells Occ /LPF Urine Bacteria 0 /HPF (0-FEW) Test 09/14/19 19:00 Troponin I Quantitative 0.054 ng/mL (0.000-0.055) Assessment and Plan Assessmemt and Plan Problems Medical Problems: (1) Abnormal chest x-ray Status: Acute (2) Acute CHF Status: Acute (3) Chest pain Status: Acute (4) Elevated troponin I level Status: Acute (5) Hypertensive urgency Status: Acute Comment Review of Relevant I have reviewed the following items tyra (where applicable) has been applied. Labs Laboratory Tests Test 09/14/19 12:15 09/14/19 13:05 09/14/19 13:35 09/14/19 16:15 White Blood Count 6.5 x10^3/uL (4.0-11.0) Red Blood Count 5.01 x10^6/uL (4.30-5.70) Hemoglobin 16.1 g/dL (13.0-17.5) Hematocrit 47.3 % (39.0-53.0) Mean Corpuscular Volume 94 fL (79-100) Mean Corpuscular Hemoglobin 32 pg (25-35) Mean Corpuscular Hemoglobin Concent 34 g/dL (31-37) Red Cell Distribution Width 14.1 % (11.5-14.5) Platelet Count 161 x10^3/uL (140-400) Neutrophils (%) (Auto) 58 % (31-73) Lymphocytes (%) (Auto) 25 % (24-48) Monocytes (%) (Auto) 12 % (0-9) Eosinophils (%) (Auto) 4 % (0-3) Basophils (%) (Auto) 2 % (0-3) Neutrophils # (Auto) 3.8 x10^3/uL (1.8-7.7) Lymphocytes # (Auto) 1.6 x10^3/uL (1.0-4.8) Monocytes # (Auto) 0.8 x10^3/uL (0.0-1.1) Eosinophils # (Auto) 0.3 x10^3/uL (0.0-0.7) Basophils # (Auto) 0.1 x10^3/uL (0.0-0.2) Prothrombin Time 15.0 SEC (11.7-14.0) Prothromb Time International Ratio 1.2 (0.8-1.1) Sodium Level 139 mmol/L (136-145) Potassium Level 4.1 mmol/L (3.5-5.1) Chloride Level 106 mmol/L (98-107) Carbon Dioxide Level 25 mmol/L (21-32) Anion Gap 8 (6-14) Blood Urea Nitrogen 26 mg/dL (8-26) Creatinine 1.2 mg/dL (0.7-1.3) Estimated GFR (Cockcroft-Gault) 59.0 BUN/Creatinine Ratio 22 (6-20) Glucose Level 104 mg/dL (70-99) Calcium Level 8.4 mg/dL (8.5-10.1) Magnesium Level 1.8 mg/dL (1.8-2.4) Total Bilirubin 1.4 mg/dL (0.2-1.0) Aspartate Amino Transf (AST/SGOT) 37 U/L (15-37) Alanine Aminotransferase (ALT/SGPT) 32 U/L (16-63) Alkaline Phosphatase 93 U/L (46-116) Creatine Kinase 126 U/L (39-308) Troponin I Quantitative 0.061 ng/mL (0.000-0.055) 0.057 ng/mL (0.000-0.055) TG-Vxm-P-Type Natriuretic Peptide 6452 pg/mL (0-449) Total Protein 7.2 g/dL (6.4-8.2) Albumin 3.4 g/dL (3.4-5.0) Albumin/Globulin Ratio 0.9 (1.0-1.7) Triglycerides Level 51 mg/dL (0-150) Cholesterol Level 162 mg/dL (0-200) LDL Cholesterol, Calculated 91 mg/dL (0-100) VLDL Cholesterol, Calculated 10 mg/dL (0-40) Non-HDL Cholesterol Calculated 101 mg/dL (0-129) HDL Cholesterol 61 mg/dL (40-60) Cholesterol/HDL Ratio 2.7 Lipase 156 U/L (73-393) Lactic Acid Level 0.8 mmol/L (0.4-2.0) Urine Color Yellow Urine Clarity Clear Urine pH 6.5 Urine Specific [place] 1.015 Urine Protein 30 mg/dL (NEG-TRACE) Urine Glucose (UA) Negative mg/dL (NEG) Urine Ketones (Stick) Negative mg/dL (NEG) Urine Blood Negative (NEG) Urine Nitrite Negative (NEG) Urine Bilirubin Negative (NEG) Urine Urobilinogen Dipstick 0.2 mg/dL (0.2 mg/dL) Urine Leukocyte Esterase Negative (NEG) Urine RBC 0 /HPF (0-2) Urine WBC Occ /HPF (0-4) Urine Squamous Epithelial Cells Occ /LPF Urine Bacteria 0 /HPF (0-FEW) Test 09/14/19 19:00 Troponin I Quantitative 0.054 ng/mL (0.000-0.055) Laboratory Tests Test 09/14/19 12:15 09/14/19 13:05 09/14/19 13:35 09/14/19 16:15 White Blood Count 6.5 x10^3/uL (4.0-11.0) Red Blood Count 5.01 x10^6/uL (4.30-5.70) Hemoglobin 16.1 g/dL (13.0-17.5) Hematocrit 47.3 % (39.0-53.0) Mean Corpuscular Volume 94 fL (79-100) Mean Corpuscular Hemoglobin 32 pg (25-35) Mean Corpuscular Hemoglobin Concent 34 g/dL (31-37) Red Cell Distribution Width 14.1 % (11.5-14.5) Platelet Count 161 x10^3/uL (140-400) Neutrophils (%) (Auto) 58 % (31-73) Lymphocytes (%) (Auto) 25 % (24-48) Monocytes (%) (Auto) 12 % (0-9) Eosinophils (%) (Auto) 4 % (0-3) Basophils (%) (Auto) 2 % (0-3) Neutrophils # (Auto) 3.8 x10^3/uL (1.8-7.7) Lymphocytes # (Auto) 1.6 x10^3/uL (1.0-4.8) Monocytes # (Auto) 0.8 x10^3/uL (0.0-1.1) Eosinophils # (Auto) 0.3 x10^3/uL (0.0-0.7) Basophils # (Auto) 0.1 x10^3/uL (0.0-0.2) Prothrombin Time 15.0 SEC (11.7-14.0) Prothromb Time International Ratio 1.2 (0.8-1.1) Sodium Level 139 mmol/L (136-145) Potassium Level 4.1 mmol/L (3.5-5.1) Chloride Level 106 mmol/L (98-107) Carbon Dioxide Level 25 mmol/L (21-32) Anion Gap 8 (6-14) Blood Urea Nitrogen 26 mg/dL (8-26) Creatinine 1.2 mg/dL (0.7-1.3) Estimated GFR (Cockcroft-Gault) 59.0 BUN/Creatinine Ratio 22 (6-20) Glucose Level 104 mg/dL (70-99) Calcium Level 8.4 mg/dL (8.5-10.1) Magnesium Level 1.8 mg/dL (1.8-2.4) Total Bilirubin 1.4 mg/dL (0.2-1.0) Aspartate Amino Transf (AST/SGOT) 37 U/L (15-37) Alanine Aminotransferase (ALT/SGPT) 32 U/L (16-63) Alkaline Phosphatase 93 U/L (46-116) Creatine Kinase 126 U/L (39-308) Troponin I Quantitative 0.061 ng/mL (0.000-0.055) 0.057 ng/mL (0.000-0.055) NQ-Gva-X-Type Natriuretic Peptide 6452 pg/mL (0-449) Total Protein 7.2 g/dL (6.4-8.2) Albumin 3.4 g/dL (3.4-5.0) Albumin/Globulin Ratio 0.9 (1.0-1.7) Triglycerides Level 51 mg/dL (0-150) Cholesterol Level 162 mg/dL (0-200) LDL Cholesterol, Calculated 91 mg/dL (0-100) VLDL Cholesterol, Calculated 10 mg/dL (0-40) Non-HDL Cholesterol Calculated 101 mg/dL (0-129) HDL Cholesterol 61 mg/dL (40-60) Cholesterol/HDL Ratio 2.7 Lipase 156 U/L (73-393) Lactic Acid Level 0.8 mmol/L (0.4-2.0) Urine Color Yellow Urine Clarity Clear Urine pH 6.5 Urine Specific [place] 1.015 Urine Protein 30 mg/dL (NEG-TRACE) Urine Glucose (UA) Negative mg/dL (NEG) Urine Ketones (Stick) Negative mg/dL (NEG) Urine Blood Negative (NEG) Urine Nitrite Negative (NEG) Urine Bilirubin Negative (NEG) Urine Urobilinogen Dipstick 0.2 mg/dL (0.2 mg/dL) Urine Leukocyte Esterase Negative (NEG) Urine RBC 0 /HPF (0-2) Urine WBC Occ /HPF (0-4) Urine Squamous Epithelial Cells Occ /LPF Urine Bacteria 0 /HPF (0-FEW) Test 09/14/19 19:00 Troponin I Quantitative 0.054 ng/mL (0.000-0.055) Medications Current Medications Hydralazine HCl (Apresoline Inj) 10 mg 1X ONCE IVP Last administered on 09/14/19at 12:30; Start 09/14/19 at 12:30; Stop 09/14/19 at 12:31; Status DC Ceftriaxone Sodium (Rocephin) 1 gm 1X ONCE IVP Last administered on 09/14/19at 13:09; Start 09/14/19 at 13:00; Stop 09/14/19 at 13:01; Status DC Furosemide (Lasix) 40 mg 1X ONCE IVP Last administered on 09/14/19at 13:26; Start 09/14/19 at 13:30; Stop 09/14/19 at 13:31; Status DC Furosemide (Lasix) 40 mg STK-MED ONCE .ROUTE ; Start 09/14/19 at 13:24; Stop 09/14/19 at 13:24; Status DC Hydralazine HCl (Apresoline Inj) 10 mg PRN Q4HRS PRN IVP ELEVATED BP, SEE COMM ENTS Last administered on 09/15/19at 03:07; Start 09/14/19 at 16:00 Aspirin (Ecotrin) 81 mg DAILY PO Last administered on 09/15/19at 08:13; Start 09/15/19 at 09:00 Cyanocobalamin (Vitamin B-12) 1,000 mcg DAILY PO Last administered on 09/15/19at 08:13; Start 09/15/19 at 09:00 Atorvastatin Calcium (Lipitor) 80 mg QHS PO Last administered on 09/14/19at 21:13; Start 09/14/19 at 21:00 Carvedilol (Coreg) 3.125 mg BIDWMEALS PO Last administered on 09/15/19at 08:14; Start 09/14/19 at 17:00 Active Scripts Active Reported Carvedilol 3.125 Mg Tablet 3.125 Mg PO BIDWMEALS Vitamin B-12 (Cyanocobalamin (Vitamin B-12)) 1,000 Mcg Tablet 1 Tab PO DAILY Atorvastatin Calcium 80 Mg Tablet 1 Tab PO DAILY Aspir-Low (Aspirin) 81 Mg Tablet. 1 Tab PO DAILY Vitals/I & O Vital Sign - Last 24 Hours 09/14/19 09/14/19 09/14/19 09/14/19 12:09 12:27 12:30 12:41 Temp 97.7 97.7 Pulse 86 64 77 72 Resp 16 20 20 B/P (MAP) 208/123 (151) 201/113 (142) 201/113 196/86 (122) Pulse Ox 94 95 96 O2 Delivery Room Air Room Air 09/14/19 09/14/19 09/14/19 09/14/19 13:11 13:30 13:41 14:29 Temp 98.1 98.1 Pulse 86 75 68 80 Resp 16 18 16 16 B/P (MAP) 187/92 (123) 187/92 (123) 177/82 (113) 137/73 (94) Pulse Ox 96 95 96 96 O2 Delivery Room Air 09/14/19 09/14/19 09/14/19 09/14/19 14:41 16:30 18:13 18:14 Pulse 68 77 77 Resp 16 B/P (MAP) 187/85 (119) 172/81 172/81 Pulse Ox 96 O2 Delivery Room Air Room Air 09/14/19 09/14/19 09/14/19 09/14/19 19:00 20:00 21:20 23:00 Temp 97.8 98.0 97.8 98.0 Pulse 85 81 Resp 18 17 B/P (MAP) 144/65 (91) 161/82 (108) Pulse Ox 96 97 O2 Delivery Room Air Room Air Room Air Room Air 09/15/19 09/15/19 09/15/19 09/15/19 02:28 03:07 03:41 07:00 Temp 97.7 97.4 97.7 97.4 Pulse 88 88 81 Resp 18 18 B/P (MAP) 180/84 (116) 180/84 161/74 (103) 154/76 (102) Pulse Ox 95 95 O2 Delivery Room Air Room Air 09/15/19 08:14 Pulse 70 B/P (MAP) 154/76 Intake and Output 09/14/19 09/14/1909/15/20 15:00 23:00 07:00 Intake Total 360 ml Output Total 1000 ml Balance -1000 ml 360 ml MARIA TERESA KOEHLER MD Sep 15, 2019 10:15
[2019-09-15] MEDS ORDERED: LIDOCAINE 1% PF 2 ML VIAL. ONE (10:33)
[2019-09-15] MEDS ORDERED: LIDOCAINE 1% Multi-Dose 20 ML VIAL. ONE (10:40)
[2019-09-15 10:44] LABS: CALCIUM 8.5 mg/dL (8.5-10.1); CREATININE 1.2 mg/dL (0.7-1.3); MAGNESIUM 1.9 mg/dL (1.8-2.4)
[2019-09-15] MEDS ORDERED: fentaNYL PF VIAL 100 MCG/2 ML VIAL ONE (10:50)
[2019-09-15] MEDS ORDERED: MIDAZOLAM HCL/PF 2 MG/2 ML VIAL. ONE (10:50)
[2019-09-15] MEDS ORDERED: IODIXANOL 320 MG/ML 100 ML VIAL. ONE (11:03)
--- NOTE | 2019-09-15 11:04 | PDOC ---
MODERATE SEDATION ASSESSMENT RISKS/ALTERNATIVES Risks/Alternatives Risks and alternatives of this type of sedation and procedure discussed with: RISK/ALTERNATIVES: Patient H & P ON CHART H & P H & P on chart and reviewed for co-morbid conditions and appropriate labs. H&P ON CHART: Yes STATUS PREG STATUS ASSESSED: N/A MEDS/ALLERGIES REVIEWED Meds/Allergies Reviewed Medications and Allergies including time and route of recently administered narcotics and sedatives. MEDS/ALLERGIES REVIEWED: Yes ASA RATING ASA RATING: III AIRWAY ASSESSMENT Airway Assessment Airway patency, oral function limitations, presence of caps, crowns, dentures, partials, and ability to extend neck assessed. AIRWAY ASSESSMENT: Yes MALLAMPATI SCORE MALLAMPATI SCORE: II PRE-SEDATION ASSESSMENT PRE-SEDATION ASSESSMENT: Yes CECILY KNUTSON MD Sep 15, 2019 11:04
[2019-09-15] MEDS ORDERED: MIDAZOLAM HCL/PF 2 MG/2 ML VIAL. IV ONE (11:30)
[2019-09-15] MEDS ORDERED: IODIXANOL 320 MG/ML 100 ML VIAL. IART ONE (11:30)
[2019-09-15] MEDS ORDERED: fentaNYL PF VIAL 100 MCG/2 ML VIAL IV ONE (11:30)
[2019-09-15] MEDS ORDERED: LIDOCAINE 1% Multi-Dose 20 ML VIAL. INJ ONE (11:30)
[2019-09-15] MEDS ORDERED: CONTRAST GIVEN. MC PRN (11:30)
--- NOTE | 2019-09-15 12:45 | CARD ---
MR#: [id number] Date of Study: 09/15/2019 Ordering Physician: CECILY ISAAC, Referring Physician: CECILY ISAAC, Tech: MEMO WILLIAMSON APPROVED REPORT Technologist: MEMO WILLIAMSON Nurse: Sophie Dowd R.N. Procedure(s) performed: FLouro Time: 5.9 min Dose: 52.77 Gycm2 Contrast total: 66mL VISI Sedation Time: 36 min LHC, Coronary angiography, Bypass angiography HISTORY The patient is a 74 year-old male with a history of : coronary artery disease, hypertension, dyslipid emia, 74 y.o male presented with acute decompensated HF and new onset LV dysfunction with EF of 20-25 % compared to prior EF of 50% 1 year ago. Due to elevated troponin and dyspnea, he was taken to the c ath lab. . INDICATION The indication(s) include : non-STEMI , dyspnea. PROCEDURE NARRATIVE After explaining the risks and benefits of the procedure and alternatives, informed consent was obtai lewis. The patient was brought electively to the cardiac catheterization lab in a fasting state. A kristian eout was performed confirming the patient's name, date of , procedure, and site of procedure. A ll necessary personnel were wearing the appropriate protective equipment and radiation monitor device s. (See nursing notes for medications administered). The right groin was sterilely prepped and drap ed in the usual fashion. The right groin was infiltrated with 10 mL of 2% lidocaine for subcutaneous anesthesia. A 6 F sheath was inserted into the right femoral artery without difficulty. Right and left coronary angiography was performed using a JR4 and JL4 catheter. Left ventricular end diastolic pressure was obtained with a pigtail catheter and pullback was performed. Bypass angiography was pe rformed with an RASHIDA and JR4 catheters. All catheter exchanges and advancements were performed over a guidewire. At case completion the right femoral sheath was removed and hemostasis was achieved with manual compression. There were no acute complications. HEMODYNAMICS: AO: 150/80 LVEDP 15 mm Hg No gradient on LV to aortic pullback. LEFT VENTRICULOGRAM: Deferred due to severe LV dysfunction by echo. CORONARY ANGIOGRAPHY: LM is a heavily calcified severe diseased vessel with a 80% stenosis. Cannot rule out prior stent. LAD is a small caliber vessel with a proximal occlusion. The mid and distal vessel has mild luminal i rregularities and is seen to fill via a patent BEY graft. LCx is a small caliber vessel with severe diffuse disease. Ramus is a moderate caliber vessel with a proximal occlusion. The mid and distal vessel fills via a p atent SVG. RCA is a large caliber dominant vessel with a proximal 100% occlusion. The mid and distal vessel fill s via a patent vein graft. RPDA is a moderate caliber vessels with normal angiographic appearance. RPL is a small caliber vessel with an ostial 80% stenosis. BYPASS ANGIOGRAPHY: BEY to LAD is patently w/o anastomotic stenosis. SVG to Ramus is patent w/o anastomotic stenosis. SVG to RCA is patent with a distal stent with diffuse 50% ISR extending into the dRCA anastomosis. Conclusion 1. Normal left sided filling pressures. 2. Severe [place] three vessel coronary disease 3. 3/3 grafts patent. Recommendations Aggressive medical therapy to include BP control. Signed by : Cecily Isaac, Electronically Approved : 09/15/2019 12:45:31
--- NOTE | 2019-09-15 16:07 | NUR ---
SS following for discharge planning. SS reviewed pt chart. Pt is from home and is currently requiring oxygen. SS will continue to follow for discharge planning.
--- NOTE | 2019-09-15 20:18 | NUR ---
Discharge Note: ES [facility] Discharge instructions and discharge home medications reviewed with Patient and a copy given. All questions have been answered and understanding verbalized. 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 Discontinued lines and drains: IVs removed, no lines present on discharge.. Patient discharged to home. left via wheelchair to his son's private vehicle.
--- NOTE | 2019-09-17 21:19 | PDOC3 ---
Discharge Summary Visit Information Date of Admission: Sep 14, 2019 Date of Discharge: Sep 15, 2019 Admitting Diagnosis: Acute systolic CHF Final Diagnosis Problems Medical Problems: (1) Abnormal chest x-ray Status: Acute (2) Acute CHF Status: Acute (3) Chest pain Status: Acute (4) Elevated troponin I level Status: Acute (5) Hypertensive urgency Status: Acute Brief Hospital Course Allergies Allergies Coded Allergies Type Severity Reaction Last Updated Verified No Known Drug Allergies 12/01/18 No Brief Hospital Course Mr Darby is a 74 yo male who presented secondary to shortness of breath and episodic chest pain. Patient has been more short of breath for the last 2 weeks, especially at night when he lays down. Associated in bilateral LE edema. Made an appointment with PCP, Dr. Pichardo today due to symptoms. Has brief episode of stabbing pain in his central chest while in the office. Pain lasted about 2 seconds and resolved without intervention. No associated dizziness, diaphoresis, palpitation, or nausea/vomiting. Has in office EKG that was reportedly concerning for ST/T was changes and patient was referred to the ED for further evaluation and treatment. No further pain. Is feeling much better following diuresis. Has a history of CAD s/p CABG and SSS s/p PPM. Follows with [facility] cardiology. Reports most recent cath was about 2 years ago. Echocardiogram about a year ago. 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 Has experienced no chest pain with exertional activities and therefore underwent cardiac catheterization for further classification of his worsening of his EF. He had Normal left sided filling pressures, Severe [place] three vessel coronary disease, 3/3 grafts patent and was feeling improved post-cath. 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 Most probably type II, demand ischemia Hypertensive urgency; like secondary to above. Chest pain, atypical; most probably secondary to demand ischemia from acute CHF ICM; LVEF 2015 45-50%, now 20-25% 09/14/2019 CAD s/p CABG 2004 and subsequent stents. Follows with [facility] cardiology SSS s/p PPM Hyperlipidemia; statin Greater than 30 minutes spent on d/c Discharge Information Condition at Discharge: Improved Follow Up: Weeks (1) Disposition/Orders: D/C to Home Scheduled Aspirin (Aspir-Low) 81 Mg Tablet., 1 TAB PO DAILY for blood thinner, #30 Ref 3 (Reported) Entered as Reported by: YRIS MARSHALL on 12/01/1814 Last Action: Continued on 09/14/191633 by BOBBI PINTO Atorvastatin Calcium (Atorvastatin Calcium) 80 Mg Tablet, 1 TAB PO DAILY for cholesterol, #30 Ref 5 (Reported) Entered as Reported by: YRIS MARSHALL on 12/01/18614 Last Action: Converted on 09/14/191633 by BOBBI PINTO Carvedilol (Carvedilol) 3.125 Mg Tablet, 3.125 MG PO BIDWMEALS for HYPERTENSION, (Reported) Entered as Reported by: BOBBI PINTO on 09/14/191633 Last Taken: 3.125MG BID on Unknown Date & Time Last Action: Continued on 09/14/191635 by BOBBI PINTO Cyanocobalamin (Vitamin B-12) (Vitamin B-12) 1,000 Mcg Tablet, 1 TAB PO DAILY for vitamin, #30 Ref 2 (Reported) Entered as Reported by: YRIS MARSHALL on 12/01/18625 Last Action: Continued on 09/14/191633 by BOBBI PINTO Discontinued Medications Amlodipine Besylate (Amlodipine Besylate) 10 Mg Tablet, 10 MG PO DAILY for b/p, (Reported) Entered as Reported by: YRIS MARSHALL on 12/01/18612 Last Action: Discontinued on 09/14/191633 by BOBBI PINTO Aspirin (Aspirin Ec) 81 Mg Tablet.dr, 1 TAB PO DAILY for BLOOD THINNER, #30 Ref 3 (Reported) Entered as Reported by: BOBBI PINTO on 09/14/19 162 Last Taken: 81 MG DAILY on Unknown Date & Time Last Action: Discontinued on 09/14/191633 by BOBBI PINTO Carvedilol (Carvedilol ) 12.5 Mg Tablet, 25 MG PO DAILY for CARDIAC, (Reported) Entered as Reported by: YRIS MARSHALL on 12/01/18614 Last Action: Discontinued on 09/14/191633 by BOBBI PINTO Docusate Sodium (Colace) 100 Mg Capsule, 100 MG PO BID for constipation, #50 (Reported) Entered as Reported by: DENISE RODRIGUEZ RN on 12/01/1835 Last Action: Discontinued on 09/14/19 163 by BOBBI PINTO Hydrocodone/Apap 5-325 ([place] 5-325 Tablet) 1 Each Tablet, 1-2 TAB PO Q6HRS for pain, #40 (Reported) Entered as Reported by: DENISE RODRIGUEZ RN on 12/01/1834 Last Action: Discontinued on 09/14/19 163 by BOBBI PINTO Irbesartan (Irbesartan) 300 Mg Tablet, 150 MG PO DAILY for b/p, (Reported) Entered as Reported by: YRIS MARSHALL on 12/01/18615 Last Action: Discontinued on 09/14/191633 by BOBBI PINTO Ondansetron Hcl (Zofran) 4 Mg Tablet, 1 TAB PO TID for nausea for 14 Days, #10 (Reported) Entered as Reported by: DENISE RODRIGUEZ RN on 12/01/18832 Last Action: Discontinued on 09/14/191633 by BOBBI PINTO Pantoprazole Sodium (Protonix) 20 Mg Tablet.dr, 40 MG PO DAILY for stomach acid, (Reported) Entered as Reported by: YRIS MARSHALL on 12/01/18618 Last Action: Discontinued on 09/14/191633 by BOBBI PINTO Spironolactone (Spironolactone) 25 Mg Tablet, 1 TAB PO DAILY for b/p, #90 Ref 1 (Reported) Entered as Reported by: YRIS MARSHALL on 12/01/18617 Last Action: Discontinued on 09/14/19 163 by BOBBI PINTO Terazosin Hcl (Terazosin Hcl) 10 Mg Capsule, 1 CAP PO DAILY for urinary problems, #90 Ref 1 (Reported) Entered as Reported by: YRIS MARSHALL on 12/01/18616 Last Action: Discontinued on 09/14/191633 by MARIA TERESA CROOK MD Sep 17, 2019 21:19
== END 2019-09-15 18:45 | disposition home or self-care (01) | DRG 286 ==
LOC: ER 12:08 → 2 SOUTH 12:49
PROVIDERS: ADMIT Internal Medicine; ATTEND Internal Medicine
PROC: 4A023N7 Measurement of Cardiac Sampling and Pressure, Left Heart, Percutaneous Approach (ICD-10-PCS; principal; 2019-09-15)
PROC: B2111ZZ Fluoroscopy of Multiple Coronary Arteries using Low Osmolar Contrast (ICD-10-PCS; 2019-09-15)
PROC: B3101ZZ Fluoroscopy of Thoracic Aorta using Low Osmolar Contrast (ICD-10-PCS; 2019-09-15)
PROC: B2131ZZ Fluoroscopy of Multiple Coronary Artery Bypass Grafts using Low Osmolar Contrast (ICD-10-PCS; 2019-09-15)
DX: I16.0 Hypertensive urgency (principal); I50.43 Acute on chronic combined systolic (congestive) and diastolic (congestive) heart failure; I24.8 Other forms of acute ischemic heart disease; I11.0 Hypertensive heart disease with heart failure; R07.89 Other chest pain; E78.00 Pure hypercholesterolemia, unspecified; I25.5 Ischemic cardiomyopathy; E78.5 Hyperlipidemia, unspecified; G56.01 Carpal tunnel syndrome, right upper limb; I25.10 Atherosclerotic heart disease of native coronary artery without angina pectoris; M19.90 Unspecified osteoarthritis, unspecified site; I49.5 Sick sinus syndrome; Z82.49 Family history of ischemic heart disease and other diseases of the circulatory system; Z95.0 Presence of cardiac pacemaker; Z95.1 Presence of aortocoronary bypass graft; Z95.5 Presence of coronary angioplasty implant and graft; Z90.49 Acquired absence of other specified parts of digestive tract
CPT/HCPCS: 36415; 71045; 80048; 80053; 80061; 81001; 82550; 83605; 83690; 83735; 83880; 84484; 85025; 85610; 87040; 93005; 93306; 93459; 96374; 96375; 99152; 99153; C1769; C1892; J0360; J0696; J1644; J1940; J2250; J3010; Q9967; 99285-25; G0378